=== PATIENT | male | born 1975 | race Caucasian/White ===

== ENCOUNTER 2017-05-22 09:31 | Inpatient (IN) | payer OTHER ==
[~2017-05-22] VITALS: Ht 177.8 cm; Wt 77.1 kg
[2017-05-22 19:40] VITALS: BP 130/75
--- NOTE | 2017-05-22 19:40 | NUR ---
INTAKE ASSESSMENT BP: 130/785, HR:81, RR:16, SpO2: 95%, T:98 Pt is in stable condition and is able to be admitted on the unit. Unit protocols regarding vitals signs and medications were explained. Pt verbalized understanding. Will continue admission upon arrival on the unit.
[2017-05-22] MEDS ORDERED: IBUPROFEN 400 MG TABLET PO PRN (19:45)
[2017-05-22] MEDS ORDERED: DICYCLOMINE HCL 20 MG TABLET PO PRN (19:45)
[2017-05-22] MEDS ORDERED: THIAMINE HCL 200 MG/2 ML VIAL IM ONE (19:45)
[2017-05-22] MEDS ORDERED: ACETAMINOPHEN 325 MG TABLET PO PRN (19:45)
[2017-05-22] MEDS ORDERED: NICOTINE 14 MG/24HR PATCH TD PRN (19:45)
[2017-05-22] MEDS ORDERED: LOPERAMIDE HCL 2 MG CAPSULE PO PRN ×2 (19:45)
[2017-05-22] MEDS ORDERED: MIRALAX 17 GM POWD.PACK PO PRN (19:45)
[2017-05-22] MEDS ORDERED: ONDANSETRON ODT 4 MG TAB.RAPDIS SL PRN (19:45)
[2017-05-22] MEDS ORDERED: CLONIDINE HCL 0.1 MG TABLET PO PRN (19:45)
[2017-05-22] MEDS ORDERED: diphenhydrAMINE 50 MG CAPSULE PO PRN (19:45)
[2017-05-22] MEDS ORDERED: ONDANSETRON 4 MG/2 ML VIAL IM PRN (19:45)
[2017-05-22] MEDS ORDERED: LORAZEPAM 1 MG TABLET PO PRN ×2 (19:45)
[2017-05-22] MEDS ORDERED: LORAZEPAM 2 MG/1 ML VIAL IM PRN (19:45)
[2017-05-22] MEDS ORDERED: MAG HYDROX/AL HYDROX/SIMETH 30 ML LIQUID UDC PO PRN (19:45)
[2017-05-22 19:57] LABS: *AMPHETAMINE, URINE POSITIVE (NEGATIVE); *BARBITURATE, URINE NEGATIVE (NEGATIVE); *CANNABINOID, URINE NEGATIVE (NEGATIVE); *COCCAINE, URINE NEGATIVE (NEGATIVE); *OPIATE, URINE NEGATIVE (NEGATIVE); *PHENCYCLIDINE SCREEN,URINE NEGATIVE (NEGATIVE)
--- NOTE | 2017-05-22 20:30 | NUR ---
ADMISSION NOTE CIWA:7 [facility] accompanied by a CO FOUNDER AND DIRECTOR at 1957. Pt is a 41 year old male admitted on 05/22/17 for ETOH, methamphetamine, and GHB withdrawal. Pt is full code with NKA. Pt reports PMHx of HIV +, hypertension and hypercholesterolemia. He reports having a PCP in the [facility] practice located in [place]. He reports he was tested yesterday in [place] and was positive for Gonorrhea (rectal). Will relay information to MD. He brought home medications of Intelence, Atorvastatin, Truvada, Nicotine, Sinus pressure/pain relief and Ramipril. Medications have been reconciled. Pt reports he was in an outpatient treatment one year ago in [place]. He is unable to recall his last sobriety. He describes his current use as: 1. ETOH( red wine) 750mL daily for 13 years. Last dose: 750mL on 05/21/17 2. Methamphetamine (smoke) 1/2 gram daily for 2 years. Last dose: 1/2 gram (smoke) on 05/21/17 3. GHB 1.5 mL daily for 2 years. Last use: 1.5 mL on 05/21/17. He describes his withdrawal symptoms as anxiety and agitation. Upon assessment, pt is alert and oriented x4, speech is clear and audible. Pt noted to be anxious, agitated, worried, and restless. Heart rate regular. Denies chest pain or SOB. PERRLA, breathing is even and unlabored, lung sounds clear. Abdomen is soft and non-distended. Bowel sounds present in all quadrants, last BM 05/22/17. Pt reports that BM is regular. Pt's skin is warm, dry and intact. MD aware of pt's admission. Pt oriented to room and unit. Safety measures in place. Will continue to monitor.
[2017-05-22] MEDS ORDERED: ETRA200T PO (20:53)
[2017-05-22] MEDS ORDERED: ATOR20TA PO (20:53)
[2017-05-22] MEDS ORDERED: NICO4GUM38 BC (20:53)
[2017-05-22] MEDS ORDERED: EMTR1TAB6 PO (20:53)
[2017-05-22] MEDS ORDERED: RAMI10CA PO (20:54)
[2017-05-22] MEDS ORDERED: GUAI1TAB27 PO (20:54)
[2017-05-22] MEDS ORDERED: PATIENT MAY USE OWN MED- MD OK PO SCH (21:00)
[2017-05-22] MEDS ORDERED: LORAZEPAM 1 MG TABLET PO SCH (21:00)
--- NOTE | 2017-05-22 21:10 | NUR ---
ONE TIME ATIVAN One time Ativan 2mg administered as ordered. Breathing even and unlabored. Safety measures in place. Will continue to monitor.
--- NOTE | 2017-05-22 22:10 | NUR ---
REASSESSMENT Medication is effective. Pt is lying in bed with eyes closed and is asleep. Breathing is even and unlabored. Safety measures in place. Will continue to monitor.
[2017-05-23] VITALS: BP 117/73
[2017-05-23 04:00] VITALS: BP 119/75
--- NOTE | 2017-05-23 06:59 | NUR ---
END OF SHIFT Pt is a 41 year old male. He remains alert and oriented x4. He had complains of anxiety and restlessness and received a one time order of Ativan 2 mg. He reported that he was tested in [place] and was positive for Gonorrhea (rectal). Dr. Vaz with new order for urine and swab (rectal) to test for Gonorrhea. Unable to obtain specimens as pt was sleeping during the shift. Will endorse to AM shift to collect. He slept a total of 7 hrs, Intake: 800mL, Void: x1, BM:0, CIWA:6. Breathing is even and unlabored. Safety measures in place. Endorsed to AM shift.
--- NOTE | 2017-05-23 07:15 | NUR ---
START OF SHIFT PATIENT IS A 41 YEAR OLD MALE ADMITTED TO [facility] ON 05/22/17 FOR WITHDRAWAL FROM ALCOHOL. PATIENT IS ON A 4 DAY ATIVAN TAPER AND THIS IS DAY 1. PATIENT IS ASLEEP IN BED AT THIS TIME, BREATHING EVEN AND UNLABORED. ORDERS FOR TODAY : COLLECT ANAL SWAB FOR GONORRHEA AND URINE SAMPLE FOR GONORRHEA. PATIENT SLEPT FOR 7 HOURS LAST NIGHT , LAST CIWA 8 @ 2000. WILL ADMINISTER PPD TODAY. NO PRN MEDS REQUIRED OR REQUESTED ON PM SHIFT. WILL FOLLOW MD PLAN OF CARE.
[2017-05-23 08:00] VITALS: BP 140/89
[2017-05-23] MEDS: FOLIC ACID 1 MG TABLET PO SCH (08:26)
[2017-05-23] MEDS: LORAZEPAM 1 MG TABLET PO SCH ×3 (08:26→20:41)
[2017-05-23] MEDS: THIAMINE HCL 100 MG TABLET PO SCH (08:26)
[2017-05-23] MEDS: MULTIVITAMINS,THERAPEUTIC TABLET PO SCH (08:26)
[2017-05-23] MEDS ORDERED: TUBERCULIN,PURIF.PROT.DERIV. 5 TU/0.1 ML TEST ID ONE (09:00)
[2017-05-23] MEDS ORDERED: PATIENT MAY USE OWN MED- MD OK PO SCH (09:00)
--- NOTE | 2017-05-23 09:00 | NUR ---
PPD DEFERRED DUE TO PATIENT HAVING THE BCG VACCINE IN [place] A CHILD, MD AWARE AND WILL ORDER X RAY IF SYMPTOMS APPEAR.
[2017-05-23] MEDS: PATIENT MAY USE OWN MED- MD OK PO SCH ×4 (09:37→20:41)
[2017-05-23] MEDS: NICOTINE POLACRILEX 4 MG GUM-PK OF TEN BC PRN (09:38)
--- NOTE | 2017-05-23 09:38 | NUR ---
PRN NICOTINE GUM' GUM 4MG GIVEN TO PATIENT PER REQUEST
--- NOTE | 2017-05-23 10:38 | NUR ---
REASSESS GUM EFFECTIVE PER PT REPORT
[2017-05-23 12:00] VITALS: BP 116/68
--- NOTE | 2017-05-23 13:00 | NUR ---
LAB SPECIMENS ANAL SWAB AND URINE FOR GONORRHEA COLLECTED AND SENT TO LAB.
[2017-05-23 16:00] VITALS: BP 103/73
[2017-05-23 17:39] LABS: BASOPHILS # (AUTO) 0.1 K/uL (0.0-8.0); BASOPHILS % (AUTO) 0.9 % (0.0-2.0); EOSINOPHILS # (AUTO) 0.3 K/uL (0.0-0.7); EOSINOPHILS % (AUTO) 3.9 % (0.0-7.0); HEMATOCRIT 44.9 % (36.7-47.1); HEMOGLOBIN 15.1 g/dL (12.5-16.3); LYMPHOCYTES # (AUTO) 2.3 K/uL (20.0-40.0); LYMPHOCYTES % (AUTO) 35.4 % (20.5-51.5); MEAN CORPUSCULAR HGB CONC 34 g/dL (32.5-36.3); MEAN CORPUSCULAR VOLUME 98.1 fL (73.0-96.2); MONOCYTES # (AUTO) 0.7 K/uL (2.0-10.0); MONOCYTES % (AUTO) 10.9 % (0.0-11.0); NEUTROPHILS # (AUTO) 3.2 K/uL (1.8-8.9); NEUTROPHILS % (AUTO) 48.9 % (38.5-71.5); PLATELET COUNT (AUTO) 222 K/uL (152-348); RED BLOOD CELL COUNT(AUTO) 4.57 MIL/uL (4.06-5.63); WHITE BLOOD COUNT (AUTO) 6.6 K/uL (3.6-10.2)
[2017-05-23 17:41] LABS: ETHANOL < 3 MG/DL (0-0)
[2017-05-23 17:46] LABS: ALANINE AMINOTRANSFERASE 36 U/L (16-63); ALKALINE PHOSPHATASE 103 U/L (50-136); AMYLASE 56 U/L (25-115); ASPARTATE AMINOTRANSFERASE 27 U/L (15-37); BILIRUBIN,TOTAL 0.2 mg/dL (0.2-1.0); CARBON DIOXIDE 25 mmol/L (21-32); CHLORIDE 102 mmol/L (98-107); GLUCOSE 112 mg/dL (74-106); MAGNESIUM 1.8 mg/dL (1.8-2.4); POTASSIUM 3.5 mmol/L (3.5-5.1); UREA NITROGEN, BLOOD 14 mg/dL (7-18)
--- NOTE | 2017-05-23 18:33 | NUR ---
END OF SHIFT : PATIENT IS A 41 YR OLD ADMITTED 05/22/17 TO [facility] FOR DETOXIFICATION FROM ALCOHOL, METH AND GHB. PATIENT STATES HE IS POSITIVE FOR GONORRHEA , ANAL SWAB AND URINE COLLECTED AND SENT TO LAB. PATIENT IS TOLERATING HIS ATIVAN TAPER AND HAS ONLY REQUIRED PRN NICOTINE GUM. PATIENTS OWN HIV MEDS TO BE TAKEN IN AM AND PM. PATIENT IS NOTED TO HAVE EXTREMELY RESTLESS LEGS WHICH HE STATES HE HAS QUITE OFTEN BEFORE COMING TO [facility]. PATIENT HAS BEEN ASLEEP MOST OF THE DAY BUT DID ATTEND 3:30PM GROUP. PPD NOT PLACED PATIENT REPORTS HAVING BCG VACCINE IN [place] CHILD, MD AWARE AND WILL ORDER X RAY IF PATIENT PRESENTS WITH ANY SYMPTOMS.LAST CIWA 8 @ 1600. PATIENT HAD A FLUID INTAKE OF 2000 ML ,3 VOIDS AND 0 BM. CONTINUE MD PLAN OF CARE.
--- NOTE | 2017-05-23 19:30 | NUR ---
START OF SHIFT Received 41 year old male patient. Pt noted to be lying in bed with eyes closed and is sleeping. Pt responds to nurses greeting. Pt is alert and oriented x4. Per endorsement, he received PRN Nicotine gum. Urine and rectal swab for gonorrhea were collected, awaiting results. Breathing is even and unlabored, safety measures in place. Will continue to monitor.
[2017-05-23 20:00] VITALS: BP 116/70
[2017-05-24] VITALS: BP 110/69
[2017-05-24 04:00] VITALS: BP 112/71
--- NOTE | 2017-05-24 07:07 | NUR ---
END OF SHIFT Pt is a 41 year old male patient. Pt remains alert and oriented x4. He had complaints of anxiety, agitation and fatigue during the shift. He did not receive or request PRN medications. He slept a total of 10 hrs, Intake:250mL, Void:x1, BM:0, CIWA:7. Breathing is even and unlabored, safety measures in place. Will endorse to AM shift.
--- NOTE | 2017-05-24 07:45 | NUR ---
START OF SHIFT Endorse rcvd from ongoing nurse, client is in bed, in position, a/o x 3, he presents with anxious mood, flat affect, sweats, chills, fine tremors, decreased appetite, difficult to concentrate, unable to stop moving legs. Room in noted with scattered clothes and open bags of chips on the floor, primary nurse cleaned room and encourage client to participate in ADL's Client reports sensitivity to light, a feeling of fullness in head, restless legs, nausea, and fatigue. Encourage client to increase PO fluid as tolerated to facilitate detox and to provide rehydration. Encourage client to attend group therapy for skills to maintain sober. Client admitted for medically supervised withdrawal from alcohol, he is on 4 day Ativan taper, tolerating well (2nd day). Last CIWA 7 @ 1999. Client had an uneventful night, Ativan taper helped manage withdrawal symptoms. Client slept 10 hrs. Seizure precautions rendered. Call light within reach.
[2017-05-24 08:00] VITALS: BP 129/81
[2017-05-24] MEDS: LORAZEPAM 1 MG TABLET PO SCH ×3 (08:27→17:13)
[2017-05-24] MEDS: FOLIC ACID 1 MG TABLET PO SCH (08:27)
[2017-05-24] MEDS: THIAMINE HCL 100 MG TABLET PO SCH (08:27)
[2017-05-24] MEDS: MULTIVITAMINS,THERAPEUTIC TABLET PO SCH (08:27)
[2017-05-24] MEDS: PATIENT MAY USE OWN MED- MD OK PO SCH ×4 (08:30→20:32)
[2017-05-24] MEDS: NICOTINE POLACRILEX 4 MG GUM-PK OF TEN BC PRN (12:11)
--- NOTE | 2017-05-24 12:11 | NUR ---
PRN Nicotine gum 4mg BC for cravings. Will continue to monitor.
[2017-05-24 12:22] VITALS: BP 125/85
--- NOTE | 2017-05-24 13:11 | NUR ---
Reassess PRN Nicotine gum 4mg effective.
[2017-05-24 17:05] VITALS: BP 127/84
--- NOTE | 2017-05-24 19:30 | NUR ---
Start of Shift Note: Endorsement received from day shift nurse. Received patient alert & oriented x4. Patient admitted for medically supervised withdrawal from ETOH withdrawal. Pt received in bed and noted to be flushed, with red teary eyes & appears disheveled. Room noted with scattered clothes and noted with odorous smell. Pt presents with anxious/irritable mood, clammy/moist skin, fine tremors, restlessness & noted with poor eye contact. . Last CIWA is 14 and received PRN Nicotine gum per report during day shift. Pt did not attend group activity during the day. Encourage pt to attend groups/activities to learn new coping skills to prevent relapse. Encourage to increase fluid intake for rehydration. Pt educated current plan of care for the night and medication regimen.
--- NOTE | 2017-05-24 19:31 | NUR ---
END OF SHIFT Endorsed client to incoming nurse, client is a/o x 4, he remained in his room, prefers dim light, he continues to present with anxious mood, flat affect, restless legs, and decrease appetite. PRN nicotine gum 4mg noted effective. Adequate PO fluid intake 1450L, void x 2. Client not compliant with group therapy d/t withdrawal symptoms. Last CIWA 14 @ 1600. Call light within reach.
[2017-05-24 20:00] VITALS: BP 119/72
[2017-05-24] MEDS: GABAPENTIN 300 MG CAPSULE PO SCH (20:32)
[2017-05-24] MEDS ORDERED: LORAZEPAM 1 MG TABLET PO SCH (21:00)
[2017-05-25] VITALS: BP 116/67
[2017-05-25 04:00] VITALS: BP 122/77
[2017-05-25 04:06] LABS: *BASOS 1 % (Not Estab.); *BASOS,ABSOLUTE 0.1 x10E3/uL (0.0-0.2); *EOS 3 % (Not Estab.); *EOS ABSOLUTE 0.2 x10E3/uL (0.0-0.4); *HCT 45.1 % (37.5-51.0); *HGB 15.1 g/dL (13.0-17.7); *IMMATURE GRANULOCYTES 0 % (Not Estab.); *LYMPHOCYTES 40 % (Not Estab.); *LYMPHOCYTES ABSOLUTE 2.6 x10E3/uL (0.7-3.1); *MCH 33.1 pg (26.6-33.0); *MCHC 33.5 g/dL (31.5-35.7); *MCV 99 fL (79-97); *MONOCYTES 8 % (Not Estab.); *MONOCYTES ABSOLUTE 0.6 x10E3/uL (0.1-0.9); *NEUTROPHILS 48 % (Not Estab.); *NEUTROPHILS ABSOLUTE 3.2 x10E3/uL (1.4-7.0); *PLT 245 x10E3/uL (150-379); *RBC 4.56 x10E6/uL (4.14-5.80); *RDW 13.4 % (12.3-15.4); *WBC 6.6 x10E3/uL (3.4-10.8)
--- NOTE | 2017-05-25 07:19 | NUR ---
End of Shift Note: Pt in bed asleep at this time and easily arousable. Pt remained alert & oriented x4. Pt continues on his Ativan taper and tolerating well with no adverse reactions noted. During my shift, pt presented with anxiety, agitation, moist/clammy skin and mild headache during my shift. No PRN medications received during my shift. Last CIWA is 10. Closely monitored signs and symptoms of withdrawal and vitals signs noted WNL. Pt remained compliant with medications and treatment. Pt stayed in his room most the night & slept for a total of 10 hours. Fluid intake: 1536 ml. Voided 2x with no bowel movement during my shift. Patient was encourage to increase fluid intake as tolerated. All needs attended. Safety measures in place. Will endorse to day shift nurse.
--- NOTE | 2017-05-25 07:45 | NUR ---
START OF SHIFT Endorse rcvd from ongoing nurse, client is in bed, a/o x 4, he presents with depressed mood, flat affect, moist skin, fine tremors, difficulty concentration, and continuously moving his legs. Client reports restless legs, pins and needle feeling ob bilateral feet, chills, sweats, intermittent nausea, he stated, "I feel my head really weird, like it's just too full or something." Encourage client to increase Po fluid to facilitate detox. Encourage client to participate in ADL and to attend group therapy for skills to maintain sober. Client is on third of modified 5 day Ativan taper, tolerating well. Last CIWA 13 @ 1999. Client slept 10 hrs. Seizure precautions rendered. Call light within reach.
[2017-05-25 08:07] LABS: HEPATITIS B SURFACE AG Negative (Negative)
[2017-05-25] MEDS: MULTIVITAMINS,THERAPEUTIC TABLET PO SCH (08:20)
[2017-05-25] MEDS: GABAPENTIN 300 MG CAPSULE PO SCH ×3 (08:21→20:53)
[2017-05-25] MEDS: FOLIC ACID 1 MG TABLET PO SCH (08:21)
[2017-05-25] MEDS: PATIENT MAY USE OWN MED- MD OK PO SCH ×4 (08:21→20:54)
[2017-05-25] MEDS: THIAMINE HCL 100 MG TABLET PO SCH (08:21)
[2017-05-25 08:31] VITALS: BP 118/78
[2017-05-25] MEDS ORDERED: LORAZEPAM 1 MG TABLET PO SCH ×3 (09:00→21:00)
[2017-05-25 11:12] LABS: *HELPER T-LYMPH MARKR(CD4)ABSO 1136 /uL (359-1519); *HELPER T-LYNPH MARKER CD4)% 43.7 % (30.8-58.5)
[2017-05-25 12:36] VITALS: BP 127/82
[2017-05-25] MEDS: NICOTINE POLACRILEX 4 MG GUM-PK OF TEN BC PRN (14:57)
--- NOTE | 2017-05-25 14:57 | NUR ---
PRN Nicotine gum 4mg BC for cravings. Will continue to monitor.
--- NOTE | 2017-05-25 15:57 | NUR ---
Reassess PRN Nicotine gum 4mg effective.
[2017-05-25 16:52] VITALS: BP 122/78
--- NOTE | 2017-05-25 18:55 | NUR ---
END OF SHIFT Endorsed client to incoming nurse, client is a/o x 4, he needs encouragement to attend group therapy, client remains isolated in his room, stating, "I just feel tired most of the time," he continues to present with anxious mood, flat affect, he verbalizes relief of restless legs with gabapentin, he consumed ~ 75% of meals. PRN nicotine gum 4mg noted effective. Adequate PO fluid intake 3058mL, void x 2. Last CIWA 14 @ 1600. Call light within reach.
--- NOTE | 2017-05-25 19:15 | NUR ---
Start of Shift Note: Endorsement received from day shift nurse. Received patient alert & oriented x4. Patient admitted for medically supervised withdrawal from ETOH withdrawal. Pt received in bed and noted to be flushed, with clammy/moist skin, has poor eye contact & appears disheveled. Room noted with scattered unfolded clothes, foods in a plate, empty bottles on the table and room noted with odorous smell. Pt is isolative in room and spent most of his time in his room. Pt educated to encourage to increase activity and to socialize with other patients. Pt presents with anxious/irritable mood, clammy/moist skin & fine tremors. Last CIWA is 14 and received PRN Nicotine gum per report during day shift. Pt did not attend group activity during the day. Encourage pt to attend groups/activities to learn new coping skills to prevent relapse. Encourage to increase fluid intake for rehydration. Pt educated current plan of care for the night and medication regimen.
[2017-05-25 20:00] VITALS: BP 120/75
[2017-05-26] VITALS: BP 111/69
[2017-05-26 04:00] VITALS: BP 117/74
--- NOTE | 2017-05-26 07:02 | NUR ---
End of Shift Note: Pt in bed asleep at this time and easily arousable. Pt remained alert & oriented x4. Pt continues on his Ativan taper and tolerating well with no adverse reactions noted. Pt still noted to be isolative in room the whole shift. Encourage pt to increase activity and socialize with other patients. During my shift, pt presented with anxiety, agitation, moist/clammy skin and fine tremors during my shift. No PRN medications received during my shift. Last CIWA noted is 10. Closely monitored signs and symptoms of withdrawal and vitals signs noted WNL. Pt remained compliant with medications and treatment. Pt stayed in his room most the night & slept for a total of 9 hours. Fluid intake: 1453 ml. Voided 3x with no bowel movement during my shift. Patient was encourage to increase fluid intake as tolerated. All needs attended. Safety measures in place. Will endorse to day shift nurse.
--- NOTE | 2017-05-26 07:30 | NUR ---
START OF SHIFT Pt 41 y/o male admitted for etoh, methamphetamine, and GHB withdrawal. Pt received in room on bed with eyes closed resting, but easily arousable to name. Pt alert and oriented to name,place, and time. Perrla. Skin warm and moist to touch. Respirations even and unlabored. Bilateral hand tremors noted. Pt appears disheveled and unkempt with hair uncombed. Open empty bottles of water scattered throughout the bed side. It was reported that pt slept for 9 hours last night. Last cows=10 @ 2100 reported. Pt is on a 4 day ativan taper and is on day 4. Bed on lowest position with side rails x2 up for safety. Call light within reach.
[2017-05-26 08:00] VITALS: BP 128/98
[2017-05-26] MEDS: LORAZEPAM 1 MG TABLET PO SCH ×3 (08:27→20:59)
[2017-05-26] MEDS: THIAMINE HCL 100 MG TABLET PO SCH (08:27)
[2017-05-26] MEDS: MULTIVITAMINS,THERAPEUTIC TABLET PO SCH (08:27)
[2017-05-26] MEDS: GABAPENTIN 300 MG CAPSULE PO SCH ×3 (08:27→20:59)
[2017-05-26] MEDS: FOLIC ACID 1 MG TABLET PO SCH (08:27)
[2017-05-26] MEDS: PATIENT MAY USE OWN MED- MD OK PO SCH ×4 (08:28→20:59)
[2017-05-26] MEDS ORDERED: LORAZEPAM 1 MG TABLET PO SCH (09:00)
[2017-05-26 12:00] VITALS: BP 123/78
--- NOTE | 2017-05-26 12:19 | NUR ---
Therapist prompted client to come to groups.
[2017-05-26] MEDS: NICOTINE POLACRILEX 4 MG GUM-PK OF TEN BC PRN (14:07)
--- NOTE | 2017-05-26 14:08 | NUR ---
PRN Pt with nicotine craving. Nicotine gum per MD order given and tolerated well.
[2017-05-26 16:00] VITALS: BP 118/68
--- NOTE | 2017-05-26 18:46 | NUR ---
END OF SHIFT Pt 41 y/o male admitted for ETOH, methamphetamine, and GHB withdrawal. Pt alert and oriented to name, place, and time. Perrla. Skin warm and moist to touch. Respirations even an unlabored. Bilateral hand tremors noted. Pt with periods of anxiety this morning. Pt appears disheveled and unkempt. Encouraged to maintain hygiene. Pt observed mostly isolative in room throughout the day. Pt did attend group activity. Pt was seen by MD today. Pt medication compliant and tolerated well. No ASE noted. Pt is on a 4 day ativan taper and is on day 4. CIWA=9@0800, 9 @1200, and 9@1600. Bed on lowest position with side rails x2 up for safety. Call light within reach.
--- NOTE | 2017-05-26 19:15 | NUR ---
Start of Shift Note: Endorsement received from day shift nurse. Received patient alert & oriented x4. Patient admitted for medically supervised withdrawal from ETOH withdrawal. Pt received in bed asleep but easily arousable. Pt appears with anxious/irritable mood. Pt is isolative in room and spent most of his time in his room. Pt educated to encourage to increase activity and to socialize with other patients. Pt presents with anxious/irritable mood, clammy/moist skin & fine tremors. Last CIWA is 9 and received PRN Nicotine gum per report during day shift. Pt attended 1 group during the day. Encourage pt to continue attending groups/activities to learn new coping skills to prevent relapse. Encourage to increase fluid intake for rehydration. Pt educated current plan of care for the night and medication regimen.
[2017-05-26 20:00] VITALS: BP 117/64
[2017-05-26 23:08] LABS: *GC NAA Negative (Negative); *TRIC.VAG. NAA Negative (Negative)
[2017-05-27] VITALS: BP 108/76
--- NOTE | 2017-05-27 07:00 | NUR ---
End of Shift Note: Pt in bed asleep at this time and easily arousable. Pt remained alert & oriented x4. Pt still noted to be isolative in room the whole shift. Pt continues on his Ativan taper and tolerating well with no adverse reactions noted. No PRN medications received during my shift. Last CIWA noted is 8. Closely monitored signs and symptoms of withdrawal and vitals signs noted WNL. Pt remained compliant with medications and treatment. Pt stayed in his room most the night & slept for a total of 10 hours. Fluid intake: 2000 ml. Voided 3x with no bowel movement during my shift. Patient was encourage to increase fluid intake as tolerated. All needs attended. Safety measures in place. Will endorse to day shift nurse.
--- NOTE | 2017-05-27 07:45 | NUR ---
START OF SHIFT Endorse rcvd from ongoing nurse, client's room feels stuffy, clothes thrown on floor on L side of bed, bedside table with open bags of snacks and melted ice cream. Client is in bed in a position, a/o x 4, he presents anxious mood, flat affect, red, teary eyes with dark circles around eyes, tremors felt not observed, clammy skin, he has difficulty concentrating. Client reports in a loud, shaky voice; abdominal cramps, feeling of panic, restless legs, nausea, decreased appetite and fatigue. Client stated, "I have been awake since 4 in the morning, I was too anxious to go back to sleep." Encourage client to increase PO fluid to facilitate detox. Encourage client to participate in ADL and to attend group therapy for skills to maintain sober. Client is on last day of modified 5 day Ativan taper, tolerating well. Last CIWA 8 @ 1999. Client slept 10 hrs. Seizure precautions rendered. Call light within reach.
[2017-05-27 08:30] VITALS: BP 129/81
[2017-05-27] MEDS: GABAPENTIN 300 MG CAPSULE PO SCH ×3 (08:37→20:49)
[2017-05-27] MEDS: THIAMINE HCL 100 MG TABLET PO SCH (08:37)
[2017-05-27] MEDS: MULTIVITAMINS,THERAPEUTIC TABLET PO SCH (08:37)
[2017-05-27] MEDS: FOLIC ACID 1 MG TABLET PO SCH (08:37)
[2017-05-27] MEDS: PATIENT MAY USE OWN MED- MD OK PO SCH ×4 (08:38→20:48)
[2017-05-27] MEDS ORDERED: LORAZEPAM 1 MG TABLET PO SCH (09:00)
[2017-05-27] MEDS ORDERED: HYDROXYZINE PAMOATE 25 MG CAPSULE PO PRN (11:15)
[2017-05-27 12:28] VITALS: BP 120/71
[2017-05-27] MEDS ORDERED: CLON0.1T14 PO (12:55)
[2017-05-27] MEDS ORDERED: HYDR-3895 PO (12:55)
[2017-05-27] MEDS ORDERED: GABA-534 PO ×2 (12:55)
[2017-05-27] MEDS ORDERED: NICO4GUM38 BC (12:55)
[2017-05-27 16:55] VITALS: BP 136/81
--- NOTE | 2017-05-27 19:32 | NUR ---
END OF SHIFT Endorsed client to incoming nurse, client is a/o x 4, he needs encouragement to attend group therapy, client completed his Ativan taper, he continues to present with anxious mood, flat affect. He consumed ~75 0% of meals. Adequate PO fluid intake 1750mL, void x 4. Last CIWA 6 @ 1600. Call light within reach.
[2017-05-27 20:05] VITALS: BP 129/63
--- NOTE | 2017-05-27 22:58 | NUR ---
Start of Shift: A/0 x4 lying on bed watching tv c/o of 4-10 anxiety and slight tremors. Given prn vistaril medication and routine meds Continue to observe for safety and fall precautions CIWA 6. Continue the Lev Pérez. Denies of any other distress. Addendum: 05/28/17 at 0432 by Sam Vazquez LVN D/C lev pérez
--- NOTE | 2017-05-28 00:34 | NUR ---
Deferred CIWA : Due to pt sleeping per protocol
[2017-05-28 03:29] VITALS: BP 129/63
--- NOTE | 2017-05-28 04:33 | NUR ---
PRN: Vistaril prn given for insomonia effective after 45 minutes
--- NOTE | 2017-05-28 04:36 | NUR ---
Deferred CIWA : Due to pt sleeping per protocol
--- NOTE | 2017-05-28 06:00 | NUR ---
END of Shift Report: Awake in room cleaning denies any distress, Slept 6 and 3/4 hrs.
[2017-05-28 06:03] VITALS: BP 129/63
--- NOTE | 2017-05-28 07:40 | NUR ---
START OF SHIFT NOTE Received report from night nurse, pt received PRN Vistaril,slept for 6 hours. Received pt alert oriented in his room anxious, agitated, bilateral tremors noted. Educated deep breathing and relaxation techniques. Patient scheduled for discharge today, pt is motivated being discharge. Safety measures in place. Will cont to monitor.
[2017-05-28 08:00] VITALS: BP 134/84
[2017-05-28] MEDS: THIAMINE HCL 100 MG TABLET PO SCH (08:16)
[2017-05-28] MEDS: GABAPENTIN 300 MG CAPSULE PO SCH (08:16)
[2017-05-28] MEDS: FOLIC ACID 1 MG TABLET PO SCH (08:16)
[2017-05-28] MEDS: MULTIVITAMINS,THERAPEUTIC TABLET PO SCH (08:16)
[2017-05-28] MEDS: PATIENT MAY USE OWN MED- MD OK PO SCH ×3 (08:21)
--- NOTE | 2017-05-28 09:28 | NUR ---
DISCHARGE NOTE Patient has been discharged [facility] Patient is in Stable condition, VS WNL. Denies suicidal and homicidal ideations at this time. All documentation has been completed, paperwork signed and dated. Pt left with all of his belongings, medications and prescriptions. Pt has been discharged from [facility] on 05/28/17 at 0928. has been Notified.
== END 2017-05-28 09:28 | disposition other institution (70) | DRG 895 ==
LOC: SRC 18:59
PROVIDERS: ADMIT Internal Medicine; ATTEND Internal Medicine
PROC: HZ2ZZZZ Detoxification Services for Substance Abuse Treatment (ICD-10-PCS; principal; 2017-05-22)
PROC: HZ41ZZZ Group Counseling for Substance Abuse Treatment, Behavioral (ICD-10-PCS; 2017-05-23)
PROC: HZ31ZZZ Individual Counseling for Substance Abuse Treatment, Behavioral (ICD-10-PCS; 2017-05-24)
DX: F10.239 Alcohol dependence with withdrawal, unspecified (principal); I15.9 Secondary hypertension, unspecified; E78.5 Hyperlipidemia, unspecified; F13.239 Sedative, hypnotic or anxiolytic dependence with withdrawal, unspecified; Y90.0 Blood alcohol level of less than 20 mg/100 ml; F17.210 Nicotine dependence, cigarettes, uncomplicated; Z81.1 Family history of alcohol abuse and dependence; Z82.49 Family history of ischemic heart disease and other diseases of the circulatory system; Z81.8 Family history of other mental and behavioral disorders; R73.9 Hyperglycemia, unspecified; Z79.899 Other long term (current) drug therapy
CPT/HCPCS: 36415; 70030-TC; 80307; 80324; 83735; 85025; 86361; 86592; 86705; 86803; 87340; 87491; 87806; A4663; G0480; J3411